=== PATIENT | female | born 1965 | race Two or more races ===

== ENCOUNTER 2024-01-07 10:17 | Outpatient (CLI) | payer OTHER | END 2024-01-07 10:28 | disposition home or self-care (01) | LOC: SONOGRAMA 10:17 | PROVIDERS: ATTEND Podiatrist Foot Surgery | DX: M72.2 Plantar fascial fibromatosis (principal) ==

== ENCOUNTER 2024-02-02 15:05 | Emergency (ER) | payer OTHER ==
[~2024-02-02] VITALS: Ht 160 cm; Wt 59.0 kg
[2024-02-02] MEDS ORDERED: TAPAZOLE5 MG PO (15:45)
[2024-02-02] MEDS ORDERED: COZAAR100 MG PO (15:45)
[2024-02-02] MEDS ORDERED: BENZONATATE 100 MG CAPSULE PO ONE (17:30)
[2024-02-02] MEDS ORDERED: GUAIFENESIN 200 MG/10 ML BLIST.PACK PO ONE (17:30)
[2024-02-02 17:58] LABS: HEMATOCRIT 39.7 % (36.0-45.00); HEMOGLOBIN 13.4 g/dL (12.0-15.00); MEAN CORPUSCULAR HEMOGLOBIN 30.7 pg (27.00-32.0); MEAN CORPUSCULAR HGB CONC 33.7 g/dl (32.0-36.0); PLATELET COUNT 172 K/uL (150-450); RED BLOOD COUNT 4.37 M/uL (4.00-6.00)
== END 2024-02-02 20:25 | disposition home or self-care (01) ==
LOC: ER 15:07
PROVIDERS: General Practice
DX: J06.9 Acute upper respiratory infection, unspecified (principal); Z20.822 Contact with and (suspected) exposure to COVID-19; E03.9 Hypothyroidism, unspecified; Z88.8 Allergy status to other drugs, medicaments and biological substances